=== PATIENT | female | born 1960 | race Caucasian/White ===

== ENCOUNTER → 2016-06-23 | Outpatient (CLI) | payer OTHER, BC ==
[~2016-06-23] VITALS: Ht 175.3 cm; Wt 152.9 kg
[~2016-06-23] MED LIST: ACCUNEB SO1.25 MG/1 INH; ALEVE220 M1 PO; BUTRANS1 EAC4 TD; CYMBALTA30 MG PO; HYDROCODONE-AP1 EAC6 PO; IMITREX 25 MG T25 M1 PO; LEVOTHYROXIN0.125 M1 PO; LEVOTHYROXINE 0.1 MG PO; LIPITOR80 MG PO; LISINOPRIL20 MG PO; NEURONTIN 300300 M1 PO; NEURONTIN600 MG; NEURONTIN600 MG PO; NORVASC5 MG PO; SINGULAIR 10 MG10 M1 PO; TRILEPTAL150 MG PO; TRILEPTAL300 MG PO; VICODIN 5-3001 EACH PO; ZESTORETIC 20-1 EAC1 PO
--- NOTE | ~2016-06-23 | HPC ---
[facility] [place] [address] PAIN MANAGEMENT CONSULTATION Name: APPLE CALVO Room #: REG JORGE ALBERTO Contreras#: [id number] Admission: 06/23/16 Attend Phys: Rl Mitchell DO Discharge: Date of : 64 Report #: [id number] THIS REPORT FOR: //name// CC: Hermann Mitchell HISTORY OF PRESENT ILLNESS: The patient is a 55-year-old female I had seen about 2 years ago. Last visit was 06/2014. She was treated for a lumbar radiculopathy at that time. Comorbidities included neuropathic pain, morbid obesity, and chronic pain syndrome. She had excellent improvement with epidural injections in the past. I had started her on some neuropathic agents including gabapentin and Trileptal. She was somewhat lost to follow up. She returns to the pain clinic today for a prolonged visit, seen from 14:14-14:45. Greater than 50% of this 25+ minute visit was spent counseling the patient. The patient notes that since I last saw her, she had lost about 50 pounds. She still is morbidly obese with a body mass index of 49.7 kilograms per meter squared. She tells me she had a compression fracture 03/24/2016 that was treated conservatively. Reviewing MRI from 06/10/2016, however, we merely note degenerative facet changes at L5-S1, L4-L5 with anterolisthesis at L4-L5, multilevel degenerative disk disease causing partial effacement of the lateral recess, particularly on the right at L4-L5. There is, however, no obvious compression noted in the MR findings. Nonetheless, the patient notes that she has ongoing multiple pain generators including primarily low back pain as well as "sciatic" symptoms down both legs. She complains of a chronic peripheral neuropathy. She states she sleeps poorly secondary to pain. She rates her pain as "6" on a 0-10 visual analog scale on her "good days." She describes aching, numbness and shooting "creepy crawling feeling", burning, stabbing sensation in her back, buttocks and legs. She notes climbing stairs, walking, standing, and menstrual cycle all contribute to increases in pain. The patient notes that she had been maintained with hydrocodone 7.5/325 three to four a day for many years by Dr. Hermann Moreno. Dr. Moreno has changed his practice to a [facility] practice and the patient cannot afford this. She has started seeing Dr Elliot Stratton as a general studies program chair physician; however, he was hesitant to prescribe ongoing opiate analgesics for her. She is currently taking Cymbalta 30 mg a day (tells me she had been up to 90 mg a day at one point), gabapentin 600 mg 3 times a day (prior up to 900 mg 3 times a day). The patient's self wean these two agents and realized in retrospect that they were indeed affording good efficacy, hence she resumed the medicines albeit at the lower doses. We had trialed oxcarbazepine back when I saw her nearly 2 years ago. She did find that it was efficacious though 300 mg 3 times a day of Trileptal along with 900 mg of gabapentin 3 tablets a day did from promote some cognitive impairment. PHYSICAL EXAMINATION: GENERAL: Reveals a 55-year-old female. [facility] [address] [place] [address] PAIN MANAGEMENT CONSULTATION Name: APPLE CALVO Room #: KRISTY Contreras#: [id number] Admission: 06/23/16 Attend Phys: Rl MerrittConsuelo StephenDO Discharge: Date of : 64 Report #: [id number] VITAL SIGNS: 175 cm, 152 kilograms with a BMI of 49.7, blood pressure is 135/83, pulse is 115, respirations 16. NEUROLOGIC: Alert and oriented to person, place and time, judged to be a reasonable historian. NECK: Cervical range of motion is full. HEENT: Cranial nerves 2-12 are grossly intact, though she has no left lateral gaze deviation, she does develop diplopia looking to the left, though she has conjugate vision looking to the right. Thyroid is enlarged, no nodules are noted. Upper extremity strength is generally preserved, rises from a chair using a armrest. Gait is tandem though she is unable to walk on her right heel or toe. Lumbar flexion is self limited at 45-50 degrees. Lower extremity strength is generally symmetric about 4/5 to all muscle groups tested. Tender in the low back and SI areas. Nominally positive straight leg raise on the right. Subjective decreased sensation bilateral lower extremities and subjective loss of proprioception as well. DIAGNOSTIC STUDIES: Has alluded to above. ASSESSMENT: 1. Symptomatic lumbar radiculopathy, neuropathic pain, morbid obesity, chronic pain syndrome requiring complex medication management. RECOMMENDATION: Long discussion with the patient today about therapeutic options. Ultimately, we have elected today doing an opiate consent to treat contract with the patient. I did point out; however, that short acting opiates are not generally indicated for chronic termite helper relief. The problem being, short acting opiates do release dopamine, which is a reward neurotransmitter associated with craving. Better to achieve a steady state analgesic with less dopamine release and hopefully improved functional status. She may benefit from resuming oxcarbazepine again, now that she is taking gabapentin at a lower dose, but will defer starting this until next visit. Did suggest she will likely want to increase her Cymbalta from 30 to 60 mg, this should afford some increased efficacy over 2-3 weeks. Lastly, I talked about a Butrans patch as an opiate alternative. She is currently taking about 22 mEq of morphine a day. We will start with a Butrans 15 mcg patch. This may be a little too much and might need to drop back to 10 or may indeed even titrate up to 20 mcg. 2. Acute exacerbation of lumbar radicular symptoms. RECOMMENDATION: Lumbar epidural injection under fluoroscopy today at L5-S1 right of midline. 3. Followup in 4 weeks to evaluate efficacy of medication changes and interventional therapy. PROCEDURE NOTE: Lumbar epidural injection under fluoroscopy. [facility] [address] [place] [address] PAIN MANAGEMENT CONSULTATION Name: APPLE CALVO Room #: REG Nissa Contreras#: [id number] Admission: 06/23/16 Attend Phys: Rl Mitchell DO Discharge: Date of : 64 Report #: [id number] PROCEDURE NOTE: After both written and informed consent to include risk of spinal cord damage, increased pain, weakness and dural puncture, the patient was taken to the fluoroscopy suite, placed in the prone position. After sterile prep and drape, a skin wheal with lidocaine was raised. A 6-inch 20-gauge epidural Tuohy needle was inserted in the midline at L5-S1 with good loss to resistance. Negative aspiration for cerebrospinal fluid or blood was noted. Omnipaque was withheld due to patient's iodine allergy. This was followed with 80 mg of triamcinolone plus 1 mL of 1.5% preservative-free Xylocaine, 0.5 mL Xylocaine was then injected to flush the needle; it was removed. The patient was monitored for an appropriate period of time and discharged in good and stable condition. <ELECTRONICALLY SIGNED> By: Rl Mitchell DO 06/27/16 1228 [id number] 0310 Rl Mitchell DO /nt
[2016-06-23 14:11] VITALS: BP 135/83
== END | disposition home or self-care (01) ==
LOC: PAIN 06-16 07:24
DX: M54.16 Radiculopathy, lumbar region (principal); G89.4 Chronic pain syndrome; E66.01 Morbid (severe) obesity due to excess calories; Z68.42 Body mass index [BMI] 45.0-49.9, adult

== ENCOUNTER → 2016-07-28 | Outpatient (CLI) | payer OTHER, BC ==
[~2016-07-28] VITALS: Ht 175.3 cm; Wt 151.9 kg
--- NOTE | ~2016-07-28 | HPC ---
[facility] [place] [place] [address] PAIN MANAGEMENT CONSULTATION Name: APPLE CALVO Room #: REG JORGE ALBERTO Ben#: [id number] Admission: 07/28/16 Attend Phys: Rl Mitchell DO Discharge: Date of : 64 Report #: [id number] THIS REPORT FOR: //name// CC: Richard Mitchell The patient is a 55-year-old female, seen on 06/23/2016. As her first visit in several years, she had somewhat lost to follow up. She was treated for neuropathic pain, requiring complex medication management, lumbar radiculopathy, comorbidity including significant morbid obesity. At last visit, I suggested she increase her Cymbalta from 30 mg daily to b.i.d. (she prior had priorly been on up to 90 mg), kept gabapentin at 600 mg 3 times a day, started the patient on a Butrans patch at 15 mcg, discontinued fairly aggressive use of hydrocodone. We did accomplish an epidural injection of L5-S1. The patient returns to pain clinic today noting overall improvement of baseline pain. She feels current subjective pain score is 4 on a 0-10 visual analog scale. She notes the epidural injection afforded 50% relief, though she also has some relief, possibly secondary to medication. PHYSICAL EXAMINATION: GENERAL: Shows a 55-year-old female, BMI is 49.4 kilograms per meter squared. Blood pressure 131/94, pulse 103, respirations 18. Rises from the chair using armrest. Diffuse tenderness across the low back. Gait is tandem. Lower extremity strength is preserved. She notes pain is much less severe, but still interferes with function. She has had 3 "bad" episodes since last visit. She does have a moderately positive straight leg raise on the right. ASSESSMENT #1: Neuropathic pain requiring complex medication management. RECOMMENDATION: 1. Continue Butrans 15 mcg every 7 days. Continue gabapentin 600 mg t.i.d., Cymbalta 30 mg b.i.d. We had discussed starting Trileptal, which I think would be reasonable. She has been on this in the past. I have written for 300 mg t.i.d. We will have her start by taking one tablet at night for 5 nights b.i.d. for 5 days and then target dose of t.i.d. Follow up in 3 months for reevaluation. We reviewed the fact that opiate medications are being used to provide analgesia adequate to support activities of daily living, not attempting to achieve a specific pain score on the 0-10 Visual Analog Scale. The current opiate medications are providing sufficient analgesia to allow the patient to participate in activities of daily living. The patient is not exhibiting any aberrant behavior suggestive of drug diversion. The patient is not having any adverse reactions to medications. The patient is not suffering from daytime somnolence or mental acuity changes. The patient is managing opiate-induced constipation with appropriate [id number] agents and dietary [address] [address] PAIN MANAGEMENT CONSULTATION Name: APPLE CALVO Room #: REG JORGE ALBERTO Contreras#: [id number] Admission: 07/28/16 Attend Phys: Rl Mitchell DO Discharge: Date of : 64 Report #: [id number] considerations. The patient was counseled on concern for caution with operating a motor vehicle while using opiate medications. A physical exam was performed and the patient's functional status was evaluated. All patients with back pain were advised against the bed rest greater than 4 days and were advised to return to normal activities. Pain score assessment was noted and the treatment plan was reviewed with the patient. All current medications, both prescribed and OTC were reviewed and reconciled on the electronic medical record. Tobacco screening was accomplished and smoking cessation was advised when indicated. BMI was noted and diet/exercise modification was recommended for all patients following outside normal parameters. I reviewed with the patient today their responsibilities to safeguard prescription medications, reviewed their responsibility to utilize medications only as prescribed by the physician. They are to seek and receive pain medications only from 1 physician group ( [facility]). They are to use 1 pharmacy and keep the clinic informed if they change pharmacies. Their responsibilities include making followup visits in a timely fashion and to avoid abrupt discontinuation of medication usage. Their responsibilities further include bringing their medications (bottles from the pharmacy with residual pills) to the visit for possible confirmation of pill counts and the patient understands it is their responsibility to submit to random drug screens to ensure both that the medications prescribed are present, and that no other controlled substances are present. All prescriptions provided today were generated electronically. ASSESSMENT #2: Acute exacerbation of lumbar radiculopathy. RECOMMENDATION: Lumbar epidural injection under fluoroscopy. PROCEDURE: Lumbar epidural steroid injection. DESCRIPTION OF PROCEDURE: After both written and informed consent to include risk of spinal cord damage, increased pain, weakness and dural puncture, the patient was taken to the fluoroscopy suite, placed in the prone position. After sterile prep and drape, a skin wheal with lidocaine was raised. A 6-inch 20-gauge epidural Tuohy needle was inserted in the midline at L5-S1 with good loss to resistance. Negative aspiration for cerebrospinal fluid or blood was noted. Then 1 mL of Omnipaque under biplanar fluoroscopy showed good spread within the epidural space. This was followed with 80 mg of triamcinolone plus 1 mL of 1.5% preservative-free Xylocaine, 0.5 mL Xylocaine was then injected to [facility] [address] [place] [address] PAIN MANAGEMENT CONSULTATION Name: LUBNAKYLIEJONO Room #: REG JORGE ALBERTO Contreras#: [id number] Admission: 07/28/16 Attend Phys: Rl Mitchell DO Discharge: Date of : 64 Report #: [id number] flush the needle; it was removed. The patient was monitored for an appropriate period of time and discharged in good and stable condition. <ELECTRONICALLY SIGNED> By: Rl Mitchell DO 07/28/16 1408 1151 1239 Rl Mitchell DO /nt
[2016-07-28 09:32] VITALS: BP 131/94
== END | disposition home or self-care (01) ==
LOC: PAIN 07-22 08:52 → EDSTATUS 07-22 09:08 → PAIN 07-22 12:02
DX: M54.16 Radiculopathy, lumbar region (principal); G43.909 Migraine, unspecified, not intractable, without status migrainosus

== ENCOUNTER → 2016-12-09 | Outpatient (CLI) | payer BC ==
[~2016-12-09] VITALS: Ht 175.3 cm; Wt 156.1 kg
[~2016-12-09] MED LIST changes: +NORCO 7.5-3251 EACH PO; +TRAMADOL 50 MG50 MG PO
[2016-12-09 11:11] VITALS: BP 110/70
== END | disposition home or self-care (01) ==
LOC: PAIN 06:54
DX: M54.16 Radiculopathy, lumbar region (principal); M54.9 Dorsalgia, unspecified; M79.1 Myalgia; G43.909 Migraine, unspecified, not intractable, without status migrainosus; E66.01 Morbid (severe) obesity due to excess calories; F11.20 Opioid dependence, uncomplicated; Z68.43 Body mass index [BMI] 50.0-59.9, adult; Z98.890 Other specified postprocedural states; Z79.899 Other long term (current) drug therapy

== ENCOUNTER → 2017-05-12 | Outpatient (CLI) | payer BC ==
[~2017-05-12] VITALS: Ht 175.3 cm; Wt 163.7 kg
[~2017-05-12] MED LIST changes: +BUPRENORPHINE HC8 MG SUBLING; +BUTALB-APAP-CA1 EACH PO; +BUTRANS1 EAC4 TRANSDERM; +HYSINGLA ER20 MG PO
--- NOTE | ~2017-05-12 | HPC ---
[facility] [place] [address] PAIN MANAGEMENT CONSULTATION Name: APPLE CALVO Room #: REG TYNissa Contreras#: [id number] Admission: 05/12/17 Attend Phys: Rl Mitchell DO Discharge: Date of : 64 Report #: [id number] THIS REPORT FOR: //name// CC: Hermann Mitchell The patient is a 56-year-old female typically treated for lumbar radiculopathy, chronic pain syndrome requiring high risk complex medication management. The patient has been stable for quite some time on Butrans patch 15 mcg. Unfortunately, her insurance company decided to not pay for this drug. They suggested that she would need to fail one of a number of drugs, one of the drugs included was Hysingla ER. The patient was given a prescription for Hysingla, she took it for about a month with side effects including nausea, sedation and lack of efficacy. We went back to some p.r.n. hydrocodone, I was loathe to use a short-acting opiate for chronic pain concerns. The patient returns to pain clinic today telling me that the current medications are not helpful, I rotated back to buprenorphine, trialing the sublingual approach, I gave her an 8 mg tablet she could cut in half for b.i.d. if she had end of dose failure. Unfortunately, this caused significant xerostomia and nausea. The patient tells me she threw up literally every time she used that medication. He returns to pain clinic today. Physical exam is unchanged, morbidly obese, very pleasant 56-year-old female with ongoing axial back and lumbar radicular pain. She does note that the epidural injection at last visit did afford some good relief. She has had, I believe, 3 injections this year. Epidural injections at L5-S1 have always afforded incremental relief of pain, continues to be problematic. She has mildly antalgic gait. Lumbar flexion is limited. Lower extremity strength is diminished. Positive straight leg raise bilaterally. ASSESSMENT: Symptomatic lumbar radiculopathy, axial back pain, chronic pain syndrome requiring high risk complex medication management. RECOMMENDATION: After a long discussion with the patient today, we elected to revert back to Butrans patch 15 mcg q. 7 days. Again, per her insurance company stated denial "dated 03/15/2017" coverage is provided in situations where the patient has tried at least 1 preferred formulary alternatives including Hysingla ER. The patient was given Hysingla ER 20 mg, this was trialled on 03/16/2017. We will also renew the patient's Fioricet for headaches, limit 30 tablets and continue Cymbalta 30 mg b.i.d., gabapentin 600 mg t.i.d., Trileptal 300 mg t.i.d. for neuropathic pain component. Lastly, I did provide the patient a [address] [address] PAIN MANAGEMENT CONSULTATION Name: APPLE CAVLO Room #: REG JORGE ALBERTO Contreras#: [id number] Admission: 05/12/17 Attend Phys: Rl Mitchell DO Discharge: Date of : 64 Report #: [id number] prescription for hydrocodone 7.5/325, limit 28 tablets in case there is a lag in getting her Butrans patch authorized. <ELECTRONICALLY SIGNED> By: Rl Mitchell DO 05/17/17 0808 1526 0255 Rl Mitchell DO /nt
[2017-05-12 13:50] VITALS: BP 140/90
== END ==
LOC: PAIN 07:04
DX: M54.16 Radiculopathy, lumbar region (principal); G89.4 Chronic pain syndrome; Z79.899 Other long term (current) drug therapy

== ENCOUNTER → 2019-04-03 | Outpatient (CLI) | payer BC ==
[~2019-04-03] VITALS: Ht 175.3 cm; Wt 152.4 kg
[~2019-04-03] MED LIST changes: +HYDROCODON-ACE1 EAC8 PO; +IMITREX 25 MG T25 MG PO; +LIPITOR40 MG PO; +MELOXICAM15 MG PO; +OXTELLAR XR300 MG PO; +SYNTHROID125 MC1 PO
[2019-04-03 09:16] VITALS: BP 152/80
--- NOTE | 2019-04-03 09:28 | NUR ---
Pain Clinic Assessment: 1. History of Osteoarthritis: FEET HANDS BACK RIGHT HIP History of Rheumatoid Arthritis: Not Applicable 2. Height: 5 ft. 9 in. 175.3 cm. Weight: 336.0 lb. oz. 152.409 kg. Patient's BMI: 49.6 3. Vital Signs: BP: 152/80 Pulse: 103 Resp: 16 Temp: 02 Sat: 93 ECG Mon: 4. Pain Intensity: 6 5. Fall Risk: Dizziness: N Needs help standing or walking: N Fallen in the last 3 months: Y Fall risk comments: 6. Patient on Blood Thinner: None 7. History of Hypertension: Y 8. Opioid Therapy greater than 6 weeks: Y Opiate Contract Signed: 9. Risk Assessment Tool Provided: 10. Functional Assessment Tool: 11. Recreational Drug Use: Never Drug Type: Tobacco Use: Never Smoker Tobacco Type: Amount or Packs/day: How Many Years: Alcohol Use: No Frequency: Quant:
== END | disposition home or self-care (01) ==
LOC: PAIN 06:53
DX: M54.5 Low back pain (principal); Z91.013 Allergy to seafood; Z91.018 Allergy to other foods; Z79.899 Other long term (current) drug therapy

== ENCOUNTER → 2019-05-03 | Outpatient (CLI) | payer BC ==
[~2019-05-03] VITALS: Ht 175.3 cm; Wt 153.8 kg
[~2019-05-03] MED LIST changes: +BUTRANS1 EACH INTRADERM
[2019-05-03 09:23] VITALS: BP 158/102
--- NOTE | 2019-05-03 09:32 | NUR ---
Pain Clinic Assessment: 1. History of Osteoarthritis: FEET HANDS BACK RIGHT HIP NECK SHOULDERS History of Rheumatoid Arthritis: Not Applicable 2. Height: 5 ft. 9 in. 175.3 cm. Weight: 339.0 lb. oz. 153.770 kg. Patient's BMI: 50.0 3. Vital Signs: BP: Pulse: 108 Resp: 18 Temp: 02 Sat: 94 ECG Mon: 4. Pain Intensity: 4 5. Fall Risk: Dizziness: N Needs help standing or walking: N Fallen in the last 3 months: Y Fall risk comments: 6. Patient on Blood Thinner: None 7. History of Hypertension: Y 8. Opioid Therapy greater than 6 weeks: Y Opiate Contract Signed: 9. Risk Assessment Tool Provided: low-o 10. Functional Assessment Tool: 60/70 11. Recreational Drug Use: Never Drug Type: Tobacco Use: Never Smoker Tobacco Type: Amount or Packs/day: How Many Years: Alcohol Use: No Frequency: Quant:
--- NOTE | 2019-05-06 12:25 | HPC ---
[facility] [place] [address] PAIN MANAGEMENT CONSULTATION Name: APPLE CALVO Room #: REG JORGE ALBERTO [facility]#: [id number] Admission: 05/03/19 Attend Phys: Marga Pena Discharge: Date of : 64 Report #: [id number] THIS REPORT FOR: //name// CC: Marga Echevarria Sr. MD DATE OF SERVICE: 05/03/2019 CHIEF COMPLAINT: Low back pain with symptomatic lumbar radiculopathy. HISTORY OF PRESENT ILLNESS: This is a 58-year-old female, who returns to the pain clinic today to discuss possible medication management. She has previously seen in our clinic for several years by Dr. Rl Mitchell. He gave her periodic epidural injections as well as Butrans patch. Her insurance company then would not pay for her medications per her report. He left our practice and she was getting her opioid medications, Hydrocodone from Dr. Echevarria. Recently, she saw Dr. Owen Pritchard for an epidural steroid injection. She reports that was very beneficial in helping her pain and was at least 50% and is still helping today with her ongoing low back pain that radiates into her bilateral legs. She also has neck and hand pain from previous surgeries. She reports a pain score 4/10 today. Her pain is increased with walking and standing; better with sitting down, lying down and medications. Today, she would like to go back on her Butrans patches that were still beneficial in controlling her pain in the past. The patient reports that the Butrans patches kept her very active. She was able to lose significant amount of weight, she reports 60 pounds because she was active and able to do things while taking this opioid medication, it did not cause any problems with constipation or daytime somnolence. The patient reports that she has been on morphine sulfate in the past that was ineffective in controlling her pain. She did trial Hysingla and buprenorphine, both those medications caused significant nausea and vomiting, so therefore, Dr. Rl Mitchell started her on Butrans and had been on that medication for several years with good efficacy. ALLERGIES: SHELLFISH. CURRENT LIST OF MEDICATIONS: Fioricet, Imitrex, Lipitor, meloxicam, Synthroid, Cymbalta, oxcarbazepine, gabapentin, hydrocodone 7.5/325 four tablets a day, naproxen, Singulair, Norvasc and Zestril. PQRS: 1. She has a history of osteoarthritis in her feet, hands, hips, neck and shoulder. Denies any rheumatoid arthritis. [address] [address] PAIN MANAGEMENT CONSULTATION Name: APPLE CALVO Room #: REG [facility] Ben#: [id number] Admission: 05/03/19 Attend Phys: Marga Pena Discharge: Date of : 64 Report #: [id number] 2. Height is 5 feet 9 inches, weight is 339, BMI is 50. 3. Vital signs, 152/80, pulse is 108, respirations 18, oxygen sat is 94. 4. Pain score is 4/10. 5. Denies dizziness, does not need help walking or standing, has fallen in the last 3 months. 6. The patient is not on any blood thinners, but does take medicine for hypertension. 7. Opioid therapy is greater than 6 weeks. Risk assessment tool is low. Functional assessment 60/70. 8. Recreational drug use, she denies. She has never smoked and does not drink alcohol. According to the prescription monitoring system, the patient filled her last hydrocodone prescriptions from Dr. Echevarria in December. He provided her with a 3-month supply that she takes 4 tablets a day. The morphine milliequivalent of that medication is 30 morphine mEq according to the CDC guidelines. PHYSICAL EXAMINATION: GENERAL: This is a 58-year-old morbidly obese female who appears her stated age, placing her current pain score at 4/10. She is alert and orientated. HEENT: Normocephalic, atraumatic. Extraocular eye muscles are intact. Mucous membranes are moist. MUSCULOSKELETAL: She has pain and discomfort in the lower portion of her back radiating down her L4-L5 and L5-S1 dermatomal distribution into her bilateral legs. She has limited flexibility due to her body habitus. Lower extremity strength is diminished due to deconditioning. She has positive straight leg raising bilaterally. IMPRESSION: 1. Symptomatic lumbar radiculopathy. 2. Axial back pain. 3. Chronic pain treated with opioid medications that have been very beneficial. PLAN: 1. We discussed treatment options with the patient today. The patient is requesting to go back to Butrans 15 mcg patch, which she found very beneficial. I explained to her, according to the CDC guidelines, the conversion factors to convert to morphine that would be 190 MME per day well above what we are willing to write and according to the CDC guidelines, a very extremely high dose according to the patient's current morphine mEq of 30 that would cause an overdose as well. The patient does report some days she takes 4 pain pills a day, which would be equivalent to 45 morphine mEq. Based on our calculations, we would be willing to write Butrans 5 mcg patch and see if this is beneficial in controlling her pain. I explained to her this was still an increase, but not as high as the 50 mcg patch would be. The patient verbalizes understanding. She would like to trial that medicine since it was so beneficial for her in the [facility] [address] [place] [address] PAIN MANAGEMENT CONSULTATION Name: APPLE CALVO Room #: REG [facility].#: [id number] Admission: 05/03/19 Attend Phys: Marga Pena Discharge: Date of : 64 Report #: [id number] past. 2. The patient has tried Hysingla and morphine and buprenorphine as well as hydrocodone. All of those were ineffective in controlling her pain at the level that Butrans patch had in the past. Scripts given today for #4 patches. We may have to seek authorization as we had done in the past, but I believe that this medication is beneficial for her. 3. The patient dismissed to home after seen by Dr. Owen Pritchard who collaborated care. The patient will call us after her patch has been on for a week to see if it is beneficial. If it is, we will give her a 3-month supply of this medication for mail off per her requirements with her insurance company. <ELECTRONICALLY SIGNED> By: Marga Pena 05/06/19 [id number] Marga Pena /nt
== END ==
LOC: PAIN 06:50
DX: M54.16 Radiculopathy, lumbar region (principal); G89.29 Other chronic pain; Z79.899 Other long term (current) drug therapy

== ENCOUNTER → 2020-05-15 | Outpatient (CLI) | payer OTHER ==
[~2020-05-15] VITALS: Ht 172.7 cm; Wt 161.0 kg
[~2020-05-15] MED LIST changes: +BUTRANS1 EAC3 TRANSDERM; +CALCIUM500 MG PO; +SUPER THERAVIT1 EACH PO; +VITAMIN D3 COM1 EACH PO
[2020-05-15 10:36] VITALS: BP 140/84
--- NOTE | 2020-05-15 10:46 | NUR ---
Pain Clinic Assessment: 1. History of Osteoarthritis: FEET HANDS BACK RIGHT HIP NECK SHOULDERS History of Rheumatoid Arthritis: Not Applicable 2. Height: 5 ft. 8 in. 172.7 cm. Weight: 355.0 lb. oz. 161.028 kg. Patient's BMI: 54.0 3. Vital Signs: BP: 140/84 Pulse: 101 Resp: 18 Temp: 02 Sat: 96 ECG Mon: 4. Pain Intensity: 7 5. Fall Risk: Dizziness: N Needs help standing or walking: N Fallen in the last 3 months: N Fall risk comments: 6. Patient on Blood Thinner: None 7. History of Hypertension: Y 8. Opioid Therapy greater than 6 weeks: Y Opiate Contract Signed: 9. Risk Assessment Tool Provided: low-o 10. Functional Assessment Tool: 60/70 11. Recreational Drug Use: Never Drug Type: Tobacco Use: Never Smoker Tobacco Type: Amount or Packs/day: How Many Years: Alcohol Use: No Frequency: Quant:
== END ==
LOC: PAIN 06:53
PROVIDERS: ATTEND Anesthesiology Pain Medicine
DX: M54.17 Radiculopathy, lumbosacral region (principal); G89.29 Other chronic pain; G43.909 Migraine, unspecified, not intractable, without status migrainosus; F32.9 Major depressive disorder, single episode, unspecified; Z79.891 Long term (current) use of opiate analgesic

== ENCOUNTER → 2020-06-05 | Outpatient (CLI) | payer OTHER ==
[~2020-06-05] VITALS: Ht 172.7 cm; Wt 161.7 kg
[2020-06-05 13:11] VITALS: BP 138/84
--- NOTE | 2020-06-05 13:34 | NUR ---
Pain Clinic Assessment: 1. History of Osteoarthritis: FEET HANDS BACK RIGHT HIP NECK SHOULDERS History of Rheumatoid Arthritis: Not Applicable 2. Height: 5 ft. 8 in. 172.7 cm. Weight: 356.4 lb. oz. 161.663 kg. Patient's BMI: 54.2 3. Vital Signs: BP: 138/84 Pulse: 104 Resp: 22 Temp: 02 Sat: 100 ECG Mon: 4. Pain Intensity: 6 5. Fall Risk: Dizziness: Y Needs help standing or walking: N Fallen in the last 3 months: Y Fall risk comments: 6. Patient on Blood Thinner: None 7. History of Hypertension: Y 8. Opioid Therapy greater than 6 weeks: Y Opiate Contract Signed: 9. Risk Assessment Tool Provided: low-o 10. Functional Assessment Tool: 60/70 11. Recreational Drug Use: Never Drug Type: Tobacco Use: Never Smoker Tobacco Type: Amount or Packs/day: How Many Years: Alcohol Use: No Frequency: Quant:
== END | disposition home or self-care (01) ==
LOC: PAIN 06:57
PROVIDERS: ATTEND Anesthesiology Pain Medicine
DX: M54.16 Radiculopathy, lumbar region (principal); M54.9 Dorsalgia, unspecified; G89.29 Other chronic pain; I10 Essential (primary) hypertension; J45.909 Unspecified asthma, uncomplicated; F32.9 Major depressive disorder, single episode, unspecified; M19.90 Unspecified osteoarthritis, unspecified site; Z98.890 Other specified postprocedural states; Z79.899 Other long term (current) drug therapy; Z96.653 Presence of artificial knee joint, bilateral; Z98.51 Tubal ligation status